=== PATIENT | female | born 1935 | race Asian ===

== ENCOUNTER 2017-02-21 11:10 | Emergency (ER) | payer OTHER ==
[~2017-02-21] VITALS: Wt 59.0 kg
[2017-02-21] MEDS ORDERED: morphine 4 MG/ML VIAL IV STA (11:28)
--- NOTE | 2017-02-21 11:57 | RADRPT ---
PROCEDURE: CT Brain without contrast. CLINICAL INDICATION: Head injury status post fall. TECHNIQUE: A CT of the brain was performed on a multidetector CT scanner utilizing axial sections from the skull base through the vertex without contrast. Images were reviewed on a high-resolution [employer] workstation. Exam CTDI = 43.95 mGy and the DLP = 630.20 mGy-cm. One or more of the following dose reduction techniques were used: Automated exposure control Adjustment of the mA and/or kV according to patient size. Use of iterative reconstruction technique. COMPARISON: None available FINDINGS: Moderate diffuse cerebral and cerebellar atrophy is present. There is proportionate dilatation of t he ventricular system and sulci in a symmetric fashion. There is prominence of the extraaxial spaces secondary to atrophy. There is no evidence of intracranial hemorrhage, mass effect or midline shift . There is a prominent occipital scalp hematoma measuring 2 x 1.5 cm No abnormal intra-axial or extr a-axial fluid collections are seen. The density of the brain is normal and the wright/white matter di fferentiation is well preserved. Mild patchy diffuse deep white matter microangiopathic ischemic ch shubham is seen. The osseous structures are unremarkable. Paranasal sinuses are clear. Vascular uday cifications are identified. IMPRESSION: 1. No intracranial hemorrhage, mass effect or midline shift. 2. Moderate generalized atrophy. Mild microangiopathic ischemic change. 3. Intracranial atherosclerosis. 4. Occipital scalp hematoma with no underlying skull fracture. RPTAT: BB .Ras Reyes MD, Date Time Electronically viewed and signed by .Ras Reyes MD, on 02/21/2017 11:57 .O/
[2017-02-21 12:16] LABS: ADD SCAN DIFF NO
[2017-02-21 12:17] LABS: BASOPHILS % 0.4 % (0.0-2.0); EOSINOPHILS # 0.1 10^3/ul (0.0-0.5); EOSINOPHILS % 1.1 % (0.0-7.0); HEMATOCRIT 36.1 % (37.0-47.0); HEMOGLOBIN 11.9 g/dl (12.0-16.0); LYMPHOCYTES # 1.6 10^3/ul (0.8-2.9); LYMPHOCYTES % 14.1 % (15.0-51.0); MEAN CORPUSCULAR HEMOGLOBIN 29.4 pg (29.0-33.0); MEAN CORPUSCULAR VOLUME 89.1 fl (82.0-101.0); MEAN PLATELET VOLUME 11.2 fl (7.4-10.4); MONOCYTE # 0.8 10^3/ul (0.3-0.9); MONOCYTES % 7.2 % (0.0-11.0); NEUTROPHIL # 8.5 10^3/ul (1.6-7.5); NEUTROPHILS % 76.7 % (39.0-77.0); PLATELET COUNT 185 10^3/UL (140-415); RED BLOOD COUNT 4.05 10^6/ul (4.20-5.40); RED CELL DISTRIBUTION WIDTH 12.5 % (11.5-14.5)
[2017-02-21 12:37] LABS: CALCIUM 9.8 mg/dl (8.4-10.2); CREATININE 0.82 mg/dl (0.44-1.00); POTASSIUM 4.5 mmol/L (3.5-5.1)
[2017-02-21 12:50] LABS: INR 0.94; PROTIME 12.6 Sec (12.2-14.2)
[2017-02-21 12:51] LABS: PARTIAL THROMBOPLASTIN TIME 31.4 Sec (25.0-35.0)
[2017-02-21] MEDS ORDERED: DIPHTH/TET/ACEL PERTUSS (ADULT) 0.5 ML VIAL IM* ONE (13:00)
[2017-02-21 13:03] VITALS: BP 139/71; PULSE 75; RESP 16
[2017-02-21] MEDS ORDERED: GABA300C16 PO (13:06)
--- NOTE | 2017-02-21 14:54 | ERD ---
ER Documentation Chief Complaint Date/Time DATE: 02/21/17 TIME: 14:50 Chief Complaint HEAD LAC/INJURY S/P GLF, NO KO, BLEEDING HPI 81-year-old female was gardening when she accidentally slipped and hit the back of her head on the ground. She denies any loss of consciousness. She only complains of pain to the back of her head. She denies any dizziness, chest pain , shortness of breath, vision disturbance, or tinnitus. She denies any back pain or neck pain. She does not know when her last tetanus vaccine was. The only blood thinner she is on is aspirin ROS All systems reviewed and are negative except as per history of present illness. Medications Home Meds Reported Medications Gabapentin* (Gabapentin*) 300 Mg Capsule, 300 MG PO DAILY, #60 CAP 02/21/17 Allergies Allergies: Coded Allergies: No Known Allergy (Unverified , 02/21/17) PMhx/Soc Hx Psychiatric Problems: No Hx Miscellaneous Medical Probl: Yes (DM, arthritis) Hx Alcohol Use: No Hx Substance Use: No Hx Tobacco Use: No Smoking Status: Never smoker FmHx Family History: No diabetes Physical Exam Vitals Vital Signs Date Time Temp Pulse Resp B/P Pulse Ox O2 Delivery O2 Flow Rate FiO2 02/21/17 13:03 75 16 139/71 100 Room Air 02/21/17 11:20 74 14 168/66 98 Room Air 02/21/17 11:11 96.8 93 17 144/88 100 Physical Exam INITIAL VITAL SIGNS: Reviewed by me GENERAL: Well developed, well nourished. HEAD: 4 x 4 centimeter hematoma to the left occipital region. There is dried blood but no active bleeding. No lacerations. No facial TTP. EYES: EOMI. PERRL. No subconjunctival hemorrhage ENT: Nose non-tender. No septal hematoma. No hemotympanum. No posterior auricular bruising or periorbital bruising. Nasopharynx and oropharynx clear. No dental, lip, or tongue injury NECK: No cervical spine TTP RESPIRATORY: Clear to auscultation bilaterally. No increased work of breathing. CV: Regular rate and rhythm. Cap refill <2sec. 2+ Radial and 2+ dorsalis pedis pulses. ABDOMEN: Soft, non-distended, non-tender. No guarding or rebound. Normal active bowel sounds. BACK: No thoracic or lumbar spine TTP. No CVA tenderness. EXTREMITIES: Normal to inspection and palpation. No deformities seen. Full ROM in extremities. SKIN: Warm, dry, pink. NEUROLOGIC: A&Ox4. No facial asymmetry. Motor and sensory function intact to all 4 extremities. Normal, steady gait Result Diagram: 02/21/17 1200 02/21/17 1200 Results 24 hrs Laboratory Tests Test 02/21/17 12:00 White Blood Count 11.010^3/ul Red Blood Count 4.0510^6/ul Hemoglobin 11.9g/dl Hematocrit 36.1% Mean Corpuscular Volume 89.1fl Mean Corpuscular Hemoglobin 29.4pg Mean Corpuscular Hemoglobin Concent 33.0g/dl Red Cell Distribution Width 12.5% Platelet Count 56804^3/UL Mean Platelet Volume 11.2fl Neutrophils % 76.7% Lymphocytes % 14.1% Monocytes % 7.2% Eosinophils % 1.1% Basophils % 0.4% Nucleated Red Blood Cells % 0.0/100WBC Neutrophils # 8.510^3/ul Lymphocytes # 1.610^3/ul Monocytes # 0.810^3/ul Eosinophils # 0.110^3/ul Basophils # 0.010^3/ul Nucleated Red Blood Cells # 0.010^3/ul Prothrombin Time 12.6Sec Prothrombin Time Ratio 1.0 INR International Normalized Ratio 0.94 Activated Partial Thromboplast Time 31.4Sec Sodium Level 137mmol/L Potassium Level 4.5mmol/L Chloride Level 104mmol/L Carbon Dioxide Level 27mmol/L Anion Gap 11 Blood Urea Nitrogen 23mg/dl Creatinine 0.82mg/dl Glucose Level 145mg/dl Calcium Level 9.8mg/dl Current Medications Medications (Trade) Dose Ordered Sig/Lila Route PRN Reason Start Time Stop Time Status Last Admin Dose Admin Morphine Sulfate (morphine) 4 mg ONCE STAT IV 02/21/17 11:28 02/21/17 11:30 DC 02/21/17 12:17 Diphtheria/ Tetanus/Acell Pertussis (Adacel) 0.5 ml ONCE ONCE IM* 02/21/17 13:00 02/21/17 13:01 DC 02/21/17 13:01 Procedures/MDM Patient is presenting after a ground-level fall that seems to be mechanical. She is neurologically intact with a GCS of 15. Her vitals are notable for hypertension without any other abnormalities. Exam showed a hematoma of the posterior scalp. However I have a low suspicion for intracranial hemorrhage or skull fracture. Given her age and the large hematoma, CT of her head was ordered and did not show any skull fracture or evidence of intracranial hemorrhage. Her C-spine was not imaged as she did not have any tenderness on palpation. Her tetanus vaccine was updated. Medications were given for pain with improvement. Her wound was cleaned and dressed. Wound care was discussed. Return precautions were also given to her grandson at bedside, who translated to the patient. Patient voiced understanding. Departure Diagnosis: Primary Impression: Acute head injury without loss of consciousness Encounter type: initial encounter Qualified Code: S09.90XA - Acute head injury without loss of consciousness, initial encounter Additional Impression: Traumatic hematoma of scalp Encounter type: initial encounter Qualified Code: S00.03XA - Traumatic hematoma of scalp, initial encounter Condition: Stable Patient Instructions: HEAD INJURY, No Wake-Up (Adult) Additional Instructions: Return to the ER for any worsening symptoms like vomiting, weakness or numbness of one side of your body, vision problems, or severe headaches. AIMEE VARGAS MD February 21, 2017 14:54
== END 2017-02-21 13:31 | disposition home or self-care (01) ==
LOC: E/R 11:10
DX: S00.03XA Contusion of scalp, initial encounter (principal); E11.9 Type 2 diabetes mellitus without complications; W01.198A Fall on same level from slipping, tripping and stumbling with subsequent striking against other object, initial encounter; Y92.9 Unspecified place or not applicable; Z23 Encounter for immunization; Z79.82 Long term (current) use of aspirin
CPT/HCPCS: 70450; 80048; 85025; 85610; 85730; 90715; J2270; 36415; 90471; 96374

== ENCOUNTER 2018-06-14 15:32 | Emergency (ER) | END 2018-06-14 20:32 | disposition home or self-care (01) ==

== ENCOUNTER 2018-06-16 09:48 | Emergency (ER) | END 2018-06-16 10:32 | disposition home or self-care (01) ==